=== PATIENT | female | born 1980 | race Caucasian/White ===

== ENCOUNTER 2020-01-01 17:59 | Emergency (ER) | payer SELFPAY ==
--- NOTE | 2020-01-01 18:08 | ED.GENADULT ---
HPI - General Adult General Chief complaint: Extremity Problem,Nontraumatic Stated complaint: STATES INFECTION LEFT HAND PINKY FINGER Time Seen by Provider: 01/01/20 18:08 History of Present Illness HPI narrative: 39-year-old woman with no significant past medical history on no medications presents with 5 days of increasing paronychial infection around the left 5th fingernail. She 1st noticed some redness 5 days ago. 3 days ago she did have some mild drainage from the cuticle edge. Over the next 3 days there has been no further drainage but the area has become more tender, more swollen, more erythematous and is now extending toward the pad of the finger. She denies fever, chills, cough, chest pain, palpitations. She is able to use the hand without any difficulty and is having minimal pain. Related Data Home Medications Medication Instructions Recorded Confirmed bupropion HCl [Wellbutrin SR] #0 03/02/16 ibuprofen 200 mg PO TID #0 05/06/16 Previous Rx's Medication Instructions Recorded clindamycin HCl 300 mg PO Q6H 10 Days #0 cap 05/06/16 meloxicam [Mobic] 7.5 mg PO BIDCC PRN #20 tab 05/06/16 cephalexin 500 mg PO TID #21 cap 01/01/20 Allergies Allergy/AdvReac Type Severity Reaction Status Date / Time amoxicillin [AMOXICILLIN] Allergy Unknown Unverified 05/30/17 12:06 Penicillins [PENICILLINS] Allergy Unknown Unverified 05/30/17 12:06 Review of Systems Review of Systems ROS Unobtainable: All systems reviewed & are unremarkable except as noted in HPI and below Patient History Social History Smoking Status: Current every day smoker Exam Narrative Exam Narrative: General: Alert appropriate in no acute distress Respiratory: Able to speak in full sentences, no obvious respiratory distress Skin: No obvious rashes, warm and dry Neurologic: Grossly intact no obvious asymmetries or abnormalities Psych, appropriate insight and affect, cooperative Extremity: Left 5th finger with slight erythema around the a paronychia minor erythema extending toward the pad of her finger. She has no lymphangitic spread. An 18 gauge needle is used to make a small hole in the proximal nail and purulence material returns with significant relief of pressure/pain. Material is sent for culture Initial Vital Signs Initial Vital Signs: Vital Signs Temperature 98.1 F 01/01/20 18:09 Pulse Rate 104 H 01/01/20 18:09 Respiratory Rate 20 01/01/20 18:09 Blood Pressure 151/106 H 01/01/20 18:09 Pulse Oximetry 95 01/01/20 18:09 Course Orders Ordered: ED Orders 01/01/20 18:29 Wound Culture and Gram Stain Stat Vital Signs Vital signs: Vital Signs - 8 hr 01/01/20 18:09 Temperature 98.1 F Pulse Rate 104 H Respiratory Rate 20 Blood Pressure 151/106 H Pulse Oximetry 95 Medical Decision Making MDM Narrative Medical decision making narrative: Five-day paronychial infection. Able to drain now through the small hole in the proximal part of the nail bed. Will also treat with 7 days of Keflex. Reviewed signs and symptoms that would necessitate a return for further evaluation. She is safe for home discharge Discharge Plan Departure Patient Disposition: Home Clinical Impression: Acute bacterial paronychia Instructions: DI for Paronychia Activity Restrictions/Additional Instructions: Thank you for coming in You do have a little infection around your nail. Please complete 7 days of Keflex to make sure it has healed completely I was able to drill a small hole into the base of your fingernail and some of the pus was draining out. Please soak the finger in just warm water to loosen up all of the tissue and if you get more drainage that is just fine. If you develop fevers, chills increasing redness extending up your finger are streaks of red heading up your finger hand or arm you need to come back to the emergency room I hope you heal quickly Prescriptions: New cephalexin 500 mg capsule 500 mg PO TID Qty: 21 RF: 0 No Action bupropion HCl [Wellbutrin SR] 100 mg tablet extended release 12 hr Qty: 0 RF: 0 ibuprofen 200 MG tablet 200 mg PO TID Qty: 0 RF: 0 clindamycin HCl 300 MG capsule 300 mg PO Q6H 10 Days Qty: 0 RF: 0 meloxicam [Mobic] 7.5 MG tablet 7.5 mg PO BIDCC PRNQty: 20 RF: 0 Referrals: Steffany Masterson MD [Primary Care Provider] -
[2020-01-01 18:09] VITALS: BP 151/106; PULSE 104; RESP 20; TEMP 36.7; O2SAT 95; BMI 68.3
--- NOTE | 2020-01-01 18:49 | PC.NURSE ---
skin is red and swollen around the cuticle. dr. barrera placed bandaid once she was done with the procedure.
[2020-01-01 18:50] VITALS: BP 153/103; PULSE 98; RESP 20; O2SAT 97
== END 2020-01-01 18:50 | disposition home or self-care (01) ==
PROVIDERS: Emergency Provider Emergency Medicine; Family Provider Family Medicine; PCP Family Medicine
DX: L03.012 Cellulitis of left finger (principal)
CPT/HCPCS: 87070; 87075; 87077; 87147; 87205; 99281; 99282

== ENCOUNTER → 2020-05-21 09:30 | Outpatient (CLI) | payer OTHER, SELFPAY ==
[2020-05-21] MEDS: COVID-19 VACC #1, MRNA(MOD) 100 MCG/0.5 ML VIAL IM (09:33)
== END ==
PROVIDERS: Family Provider Family Medicine; PCP Family Medicine; Visit Provider Internal Medicine
DX: Z23 Encounter for immunization (principal)
CPT/HCPCS: 0011A; 91301

== ENCOUNTER → 2020-06-18 08:56 | Outpatient (CLI) | payer OTHER, SELFPAY ==
[2020-06-18] MEDS: COVID-19 VACC #2, MRNA(MOD) 100 MCG/0.5 ML VIAL IM (09:02)
== END ==
PROVIDERS: Family Provider Family Medicine; PCP Family Medicine; Visit Provider Internal Medicine
DX: Z23 Encounter for immunization (principal)
CPT/HCPCS: 0012A; 91301

== ENCOUNTER 2022-03-14 08:19 | Emergency (ER) | payer OTHER, SELFPAY ==
[2022-03-14 08:27] VITALS: BP 150/86; PULSE 87; RESP 20; TEMP 36.8; O2SAT 98; BMI 38.9
--- NOTE | 2022-03-14 08:27 | DI.RAD.S_ITS ---
PROCEDURE: XR RIBS RT MIN 3V W CXR 1V INDICATIONS: rib pain, heard pop TECHNIQUE: 2 views of the right ribs were acquired, along with a single view chest. COMPARISON: None. FINDINGS: Surgical changes and devices: None. Bones and chest wall: No fractures or dislocations. No suspicious bony lesions. Overlying soft tissues appear unremarkable. Lungs and pleura: No pleural effusions or pneumothorax. Lungs appear clear. Mediastinum: Mediastinal contours appear normal. Heart size is normal. IMPRESSION: No rib fracture identified. Dictated by: Rigoberto Landis M.D. on 03/14/2022 at 8:47 Approved by: Rigoberto Landis M.D. on 03/14/2022 at 8:47
[2022-03-14 09:09] VITALS: PULSE 83; O2SAT 94
[2022-03-14 09:30] VITALS: PULSE 84; O2SAT 95
--- NOTE | 2022-03-14 09:55 | ED.BACK ---
HPI - Back Pain/Injury General Chief Complaint: Back Pain/Injury Stated Complaint: broken rib Time Seen by Provider: 03/14/22 09:48 Source: patient History of Present Illness HPI Narrative: Patient brought here by boyfriend from home for right rib pain for the past week. Last Sunday night she was in bed sleeping, rolled over and felt a pop and heard a pop in her right rib distal right breast from sternum to her back. Painful with breathing and movement and coughing. Patient is a smoker. Denies any previous lung diseases. Otherwise no chest pain no dyspnea. No fever chills. No hemoptysis Related Data Previous Rx's Medication Instructions Recorded triamcinolone acetonide 0.1 % 1 applic topical BID rash/itching 04/27/21 topical ointment #30 grams baclofen 20 mg tablet 20 mg PO TID PRN pain (scale score 03/14/22 4-6) #20 tabs ibuprofen 800 mg tablet 800 mg PO Q8H PRN pain #20 tabs 03/14/22 Allergies Allergy/AdvReac Type Severity Reaction Status Date / Time amoxicillin [AMOXICILLIN] Allergy Unknown Verified 04/27/21 11:19 Penicillins [PENICILLINS] Allergy Unknown Unverified 05/30/17 12:06 Review of Systems Review of Systems Narrative: GENERAL: negative chills, fatigue, malaise, fever, sweats. HEENT: negative sinus pain, ear pain, sore throat RESPIRATORY: negative dyspnea, cough CARDIOVASCULAR: negative chest pain, palpitations GASTROINTESTINAL: negative nausea, vomiting, abdominal pain : negative dysuria, frequency, hematuria MUSCULOSKELETAL: Positive muscle or bony pain SKIN: negative rash, skin lesions NEUROLOGIC: negative weakness, numbness ROS Unobtainable: All systems reviewed & are unremarkable except as noted in HPI and below Patient History Social History Smoking Status: Current every day smoker Smoking Status: Current every day smoker tobacco type: cigarettes Substance Use Type: marijuana Exam Narrative Exam Narrative: GENERAL: in no distress, not toxic not dyspneic HEAD: Normocephalic. EYES: Pupils equal round NECK: Trachea midline. CARDIOVASCULAR: Regular rate and rhythm without murmurs RESPIRATORY: Clear to auscultation. Breath sounds equal bilaterally. No wheezes, rales, or rhonchi. GASTROINTESTINAL: Abdomen soft, non-tender BACK: No flank tenderness. NEURO: AOx4. SKIN: Warm and dry, there is reproducible tenderness of the rib right inframammary from sternum to the spine. No rash or lesions or vesicles. Painful with deep breath and coughing and movement. PSYCH: Not anxious, is cooperative Initial Vital Signs Initial Vital Signs: Vital Signs Temperature 98.2 F 03/14/22 08:27 Pulse Rate 87 03/14/22 08:27 Respiratory Rate 20 03/14/22 08:27 Blood Pressure 150/86 H 03/14/22 08:27 Pulse Oximetry 98 03/14/22 08:27 Oxygen Delivery Method 03/14/22 08:27 Course Orders Ordered: ED Orders 03/14/22 08:27 XR ribs RT min 3V w CXR1V Stat Discontinued Medications Baclofen (Baclofen 10 Mg Tablet) 10 mg PO NOW ONE Stop: 03/14/22 09:55 Last Admin: 03/14/22 10:03 Dose: 10 mg Documented By: RB Ketorolac Tromethamine (Ketorolac 30 Mg/Ml Vial) 30 mg IM NOW ONE Stop: 03/14/22 09:55 Last Admin: 03/14/22 10:03 Dose: 30 mg Documented By: RB Vital Signs Vital signs: Vital Signs - 8 hr 03/14/22 08:27 03/14/22 09:09 03/14/22 09:30 Temperature 98.2 F Pulse Rate 87 83 84 Respiratory Rate 20 Blood Pressure 150/86 H Pulse Oximetry 98 94 95 Oxygen Delivery Method Room Air 03/14/22 10:08 Temperature Pulse Rate Respiratory Rate Blood Pressure 148/80 H Pulse Oximetry Oxygen Delivery Method MDM - Back Pain/Injury Imaging Data X-ray right rib with chest: Radiologist's Impression: [address] [address] XRay Report Signed Patient: Taty Rosario MR#: [id number] : 1980 Acct:[id number] Age/Sex: 42 / F Date of Service: 03/14/22 Loc: ED Accession Number: [id number] ?? Procedure: XR ribs RT min 3V w CXR1V Ordering Provider: Hubert Obando MD PROCEDURE:? XR RIBS RT MIN 3V W CXR 1V ? INDICATIONS:? rib pain, heard pop ? TECHNIQUE: 2 views of the right ribs were acquired, along with a single view chest.? ? COMPARISON:? None. ? FINDINGS:? ? Surgical changes and devices:? None.? ? Bones and chest wall:? No fractures or dislocations.? No suspicious bony lesions.? Overlying soft tissues appear unremarkable.? ? Lungs and pleura:? No pleural effusions or pneumothorax.? Lungs appear clear.? ? Mediastinum:? Mediastinal contours appear normal.? Heart size is normal.? ? IMPRESSION:? No rib fracture identified. ? ? Dictated by: Rigoberto Landis M.D. on 03/14/2022 at 8:47 ? ? Approved by: Rigoberto Landis M.D. on 03/14/2022 at 8:47 ? MDM Narrative Medical decision making narrative: Patient brought here by boyfriend from home for right rib pain for the past week. Last Sunday night she was in bed sleeping, rolled over and felt a pop and heard a pop in her right rib distal right breast from sternum to her back. Painful with breathing and movement and coughing. Patient is a smoker. Denies any previous lung diseases. Otherwise no chest pain no dyspnea. No fever chills. No hemoptysis Enter examined and evaluation, x-ray right ribs with chest x-ray has been ordered. LING CC: Right rib pain Complicating co-morbidities: Smoking Data collected from: Patient and boyfriend Medical records reviewed: Previous history visit of paronychia Differential considered: Includes but not limited to right rib fracture/strain/costochondritis/pleurisy/pneumothorax/pulmonary embolism/pneumonia/muscle strain Exam documented above, pertinent findings include: Reproducible right chest wall tenderness and pain Imaging studies independently reviewed: Right rib x-ray with chest no acute process Treatments: Toradol/baclofen Re-evaluations: Reviewed results with patient and agrees likely muscle strain/rib strain/cartilage injury. Reviewed with her to stop smoking. Primary care referral given. Patient tolerated incentive spirometry instructions Discussion: Appropriate for discharge home. Exam and imaging are reassuring. Return precautions reviewed with patient primary care referral given. Prescriptions provided as well. Differential diagnosis above were considered however likely not pulmonary embolism. Pain is very superficial and reproducible. Vital signs otherwise reassuring. Patient desires discharge home. No EKG indicated. Patient has right-sided reproducible pain/tenderness no blood work indicated this time. Diagnosis: Right chest wall strain Disposition: see below, along with detailed discharge instructions that have been reviewed with patient as well as indications for ED re-evaluation and additional outpatient follow up Discharge Plan Departure Patient Disposition: Home Clinical Impression: Strain of chest wall Instructions: How to Use an Incentive Spirometer, DI for Muscle Strain Activity Restrictions/Additional Instructions: No driving or operating machinery today when taking prescribed muscle relaxer. See family doctor in a week for re-evaluation of your chest wall pain. Call provided primary care referral phone number to establish family doctor. Call [phone]. Please do stop smoking. Use incentive spirometer as instructed every hour when awake. Return if worse if any questions or concerns. Prescriptions: New ibuprofen 800 mg tablet 800 mg PO Q8H PRN (Reason: pain) Qty: 20 0RF baclofen 20 mg tablet 20 mg PO TID PRN (Reason: pain (scale score 4-6)) Qty: 20 0RF No Action triamcinolone acetonide 0.1 % ointment 1 applic topical BID Qty: 30 0RF Stand Alone Forms: Patient Portal/API
[2022-03-14] MEDS: KETOROLAC 30 MG/ML VIAL IM (10:03)
[2022-03-14] MEDS: BACLOFEN 10 MG TABLET PO (10:03)
[2022-03-14 10:08] VITALS: BP 148/80
== END 2022-03-14 10:09 | disposition home or self-care (01) ==
PROVIDERS: Emergency Provider Emergency Medicine; Family Provider Family Medicine
DX: S29.011A Strain of muscle and tendon of front wall of thorax, initial encounter (principal)
CPT/HCPCS: 71101; 96372; 99283; 99284; J1885

== ENCOUNTER → 2023-01-27 13:17 | Outpatient (CLI) | payer OTHER, SELFPAY | PROVIDERS: Family Provider Family Medicine; Visit Provider Registered Nurse | DX: N89.8 Other specified noninflammatory disorders of vagina (principal); N90.89 Other specified noninflammatory disorders of vulva and perineum | CPT/HCPCS: 87086; 87210 ==